=== PATIENT | male | born 1985 | race African-American/Black ===

== ENCOUNTER 2019-04-13 12:01 | Emergency (ER) | payer OTHER ==
[2019-04-13 12:07] VITALS: BP 128/85; PULSE 75; TEMP 98; BMI 19.5
[2019-04-13] MEDS ORDERED: DIPHTH,PERTUSS(ACELL),TET 0.5 ML DISP.SYRIN IM ONE ×2 (12:48→13:11)
--- NOTE | 2019-04-13 12:48 | PDOC ---
History of Present Illness - General Chief Complaint: Injury Stated Complaint: FALL Time Seen by Provider: 04/13/19 12:20 - History of Present Illness Initial Comments: 04/13/19 12:41 33-year-old male without comorbidities presents for evaluation after falling through a hole while collecting garbage earlier today. No postinjury nausea vomiting or visual changes does have small lacerations she's concerned about on the forehead and right leg he is unsure of his current tetanus status. Past History - Past Medical History Allergies/Adverse Reactions: Allergies Allergy/AdvReac Type Severity Reaction Status Date / Time No Known Allergies Allergy Verified 04/13/19 12:07 COPD: No - Suicide/Smoking/Psychosocial Hx Smoking History: Never smoked Information on smoking cessation initiated: No Hx Alcohol Use: No Drug/Substance Use Hx: No Review of Systems - Review of Systems HEENTM: No: Recent change in vision, Double Vision ABD/GI: No: Nausea, Vomiting Neurological: No: Headache *Physical Exam - Vital Signs Last Vital Signs Temp Pulse Resp BP Pulse Ox 98 F 75 18 128/85 98 04/13/19 12:05 04/13/19 12:05 04/13/19 12:05 04/13/19 12:05 04/13/19 12:05 - Physical Exam Comments: 04/13/19 12:44 HEAD: NC there is a small superficial abrasion on the forehead EYES: Conjuntiva clear Ears: Canals and TM's normal NOSE: No d/c THROAT: Moist mucous membrances, oral pharanx clear, uvula midline NECK: Supple without adenopathy CARDIAC: S1 S2 LUNGS: CTA Full and Equal breath sounds ABDOMEN: Soft NT ND MS: Full ROM in all joints without edema there is a small superficial abrasion on the anterior aspect the right lower leg NEUROLOGIC: No gross sensory or motor deficits, NVID SKIN: Normal color and temperature no lesions or rashes Medical Decision Making - Medical Decision Making 04/13/19 12:45 Low velocity trauma tetanus updated no findings or symptoms post head injury follow up with pcp if needed 04/13/19 12:49 *DC/Admit/Observation/Transfer Diagnosis at time of Disposition: Abrasion - Discharge Dispostion Disposition: HOME Condition at time of disposition: Stable Decision to Admit order: No - Referrals Referrals: Moustapha Danielson MD [Staff Physician] - - Patient Instructions Additional Instructions: Please keep the area clean with soap and water left open to air. If he must work please cover the area with a Band-Aid do not apply any ointments such as bacitracin or Neosporin. Follow-up with your primary care physician in 1-2 days should you have further issues or return to the emergency room for further evaluation and treatment options should you have further issues. - Post Discharge Activity
== END 2019-04-13 13:17 | disposition home or self-care (01) ==
LOC: JERFT 12:01
PROC: 3E0234Z Introduction of Serum, Toxoid and Vaccine into Muscle, Percutaneous Approach (ICD-10-PCS; principal; 2019-04-13)
DX: S00.81XA Abrasion of other part of head, initial encounter (principal); W13.8XXA Fall from, out of or through other building or structure, initial encounter; Y93.89 Activity, other specified; Y92.89 Other specified places as the place of occurrence of the external cause
CPT/HCPCS: 90715; 99281-25

== ENCOUNTER 2019-12-21 13:57 | Emergency (ER) | payer OTHER ==
[2019-12-21 14:13] VITALS: BP 112/72; PULSE 87; TEMP 98.3; BMI 25.2
[2019-12-21] MEDS ORDERED: MAG HYDROX/AL HYDROX/SIMETH 30 ML UNIT-DOSE CUP PO ONE (14:26)
[2019-12-21] MEDS ORDERED: MAG HYDROX/AL HYDROX/SIMETH 30 ML UNIT-DOSE CUP ONE (14:39)
[2019-12-21 14:52] LABS: BASO % 0.3 % (0-2.0); EOS % 0.1 % (0-4.5); HEMOGLOBIN 13.8 GM/dL (11.7-16.9); MCH 30.7 pg (25.7-33.7); MCHC 34.4 g/dl (32.0-35.9); MEAN CELL VOLUME 89.3 fl (80-96); MEAN PLT VOLUME 9.2 fl (7.5-11.1); MONO % 15.8 % (3.8-10.2); NEUT % 54.8 % (42.8-82.8); PLATELET COUNT 168 K/MM3 (134-434); RBC 4.48 M/mm3 (4.00-5.60); RDW 13.6 % (11.9-15.9); WHITE BLOOD COUNT 3.6 K/mm3 (4.0-10.0)
[2019-12-21] MEDS ORDERED: FAMOTIDINE 20 MG TABLET PO ONE (15:10)
[2019-12-21] MEDS ORDERED: ACETAMINOPHEN 325 MG TABLET (FP) PO ONE (15:10)
[2019-12-21 15:20] LABS: ALBUMIN 3.9 g/dl (3.4-5.0); ALK PHOS 75 U/L (45-117); ANION GAP 8 MMOL/L (8-16); BILIRUBIN,TOTAL 0.8 mg/dL (0.2-1); BLOOD UREA NITROGEN 16.2 mg/dL (7-18); CALCIUM 8.8 mg/dL (8.5-10.1); CHLORIDE 103 mmol/L (98-107); CO2 25 mmol/L (21-32); CREATININE 0.9 mg/dL (0.55-1.3); GLUCOSE,RANDOM 84 mg/dL (74-106); LIPASE 53 U/L (73-393); POTASSIUM 4.1 mmol/L (3.5-5.1); SGOT/AST 20 U/L (15-37); SGPT/ALT 17 U/L (13-61); SODIUM 136 mmol/L (136-145); TOT PROT 7.4 g/dl (6.4-8.2)
[2019-12-21] MEDS ORDERED: ACETAMINOPHEN 325 MG TABLET (FP) ONE (15:26)
[2019-12-21] MEDS ORDERED: FAMOTIDINE 20 MG TABLET ONE (15:27)
== END 2019-12-21 16:47 | disposition home or self-care (01) ==
LOC: JER 13:57
DX: R10.13 Epigastric pain (principal)
CPT/HCPCS: 36415; 71046-TC-FY; 80053; 83690; 84484; 85025; 93005; 93010; 99285-25

== ENCOUNTER 2020-08-01 04:00 | Emergency (ER) | payer OTHER ==
[2020-08-01 04:32] VITALS: BP 122/84; PULSE 84; TEMP 98.1; BMI 20.1
[2020-08-01] MEDS ORDERED: ACETAMINOPHEN 325 MG TABLET (FP) PO ONE (04:35)
[2020-08-01] MEDS ORDERED: ACETAMINOPHEN 325 MG TABLET (FP) ONE (05:09)
== END 2020-08-01 05:17 | disposition home or self-care (01) ==
LOC: JER 04:00
DX: R53.1 Weakness (principal); M54.5 Low back pain
CPT/HCPCS: 99284-25